=== PATIENT | female | born 1935 | race Caucasian/White ===

== ENCOUNTER 2016-10-20 23:05 | Emergency (ER) | payer MEDICARE ==
[~2016-10-20] VITALS: Ht 162.6 cm; Wt 93.2 kg
[~2016-10-20 23:05] MED LIST: ATEN25TA7 PO; BENZ-12 PO; CHOL10002 PO; CLIN-78 PO; COU5 PO; CRAN500T PO; DIGO125T PO; DOXY100T2 PO; ERYT1OIN7 OP; FURO40TA PO; GLPZ5T1 PO; HYDR1TAB69 PO; INSU100C2 SQ; K20 PO; MTF850T PO; SERT100T PO; SLO64 PO; cinnamon PO
[2016-10-20 23:17] VITALS: BP 193/81; PULSE 71; RESP 17; O2SAT 98
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
[2016-10-21] MEDS ORDERED: 0.9% Sodium Chloride 1,000 ML IV ONE (00:19)
[2016-10-21 00:52] LABS: BASOPHILS % (AUTO) 0.2 % (0-3); EOSINOPHILS % (AUTO) 0.6 % (0-5); MONOCYTES % (AUTO) 6.3 % (4-12); Mean Corpuscular Hemoglobin 29.3 pg (27.0-35.0); Mean Corpuscular Volume 90.3 fL (81-100); NEUTROPHILS % (AUTO) 85.9 % (40-74); Platelet Count 115 bil/L (150-400)
[2016-10-21 01:22] LABS: INR 2.01 ratio
[2016-10-21 01:38] LABS: TROPONIN T 0.01 ug/L (0.0-0.011)
[2016-10-21] MEDS ORDERED: HYDROcodone-APAP 5-325 mg Tablet PO ONE (01:45)
[2016-10-21 02:51] LABS: APPEARANCE,URINE HAZY (CLEAR,HAZY); COLOR,URINE YELLOW (YELLOW); OCCULT BLOOD,URINE LARGE (NEGATIVE); PH,URINE 5.5 (5.0-8.0); UROBILINOGEN,URINE NORMAL (NORMAL)
[2016-10-21 03:25] VITALS: BP 165/80; PULSE 70; RESP 16; O2SAT 99
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
== END 2016-10-21 03:27 | disposition home or self-care (01) ==
LOC: SED 23:05
DX: S29.019A Strain of muscle and tendon of unspecified wall of thorax, initial encounter (principal); S22.31XA Fracture of one rib, right side, initial encounter for closed fracture; S80.01XA Contusion of right knee, initial encounter; S80.02XA Contusion of left knee, initial encounter; S60.211A Contusion of right wrist, initial encounter; S50.11XA Contusion of right forearm, initial encounter; V43.62XA Car passenger injured in collision with other type car in traffic accident, initial encounter; Y93.89 Activity, other specified; Y92.410 Unspecified street and highway as the place of occurrence of the external cause; Y99.8 Other external cause status; R60.9 Edema, unspecified; E04.2 Nontoxic multinodular goiter; D73.89 Other diseases of spleen; I45.10 Unspecified right bundle-branch block; I48.91 Unspecified atrial fibrillation; I10 Essential (primary) hypertension; I48.2 Chronic atrial fibrillation; E11.9 Type 2 diabetes mellitus without complications; K21.9 Gastro-esophageal reflux disease without esophagitis; E66.9 Obesity, unspecified; Z79.01 Long term (current) use of anticoagulants; Z79.84 Long term (current) use of oral hypoglycemic drugs; Z79.4 Long term (current) use of insulin; Z88.0 Allergy status to penicillin; Z88.2 Allergy status to sulfonamides
CPT/HCPCS: 36415; 71010; 71260; 73090; 73110; 73562; 74177; 80053; 81001; 83690; 84484; 85025; 85610; 85730; 86850; 93005; 96360; 99285; J7030; Q9967